=== PATIENT | female | born 1990 | race American Indian/Alaskan Native ===

== ENCOUNTER 2019-12-12 20:10 | Outpatient (CLI) | payer OTHER ==
[2019-12-12 21:45] VITALS: BP 110/67
--- NOTE | 2019-12-13 01:41 | Ultrasound Report ---
Limited OB ultrasound INDICATION: Fall, FINDINGS: There is a single intrauterine which is in the transverse presentation with head on maternal right. Placenta is located anteriorly and grade 1. heart rate is 157 bpm. There is no sonographic evidence of abruption. Signer Name: Pepito Pinto MD Signed: 12/13/2019 1:36 AM Workstation Name: [id number]
== END 2019-12-13 02:42 | disposition home or self-care (01) ==
LOC: TRG 20:10 → APU 20:27 → LD 22:14 → TRG 12-13 02:42
PROVIDERS: ATTEND Obstetrics & Gynecology
DX: O34.02 Maternal care for unspecified congenital malformation of uterus, second trimester (principal); Z3A.23 23 weeks gestation of pregnancy
CPT/HCPCS: 76815